=== PATIENT | female | born 1970 | race Caucasian/White ===

== ENCOUNTER 2018-11-23 12:48 | Emergency (ER) | payer MEDICAID, OTHER ==
[~2018-11-23] VITALS: Ht 154.9 cm; Wt 59.0 kg
[2018-11-23 12:54] VITALS: BP 133/81
[2018-11-23] MEDS ORDERED: GLUCAGON 1 MG VIAL IVP ONE (13:50)
[2018-11-23] MEDS ORDERED: ALBUTEROL SULFATE/IPRATROPIU 3 ML SOL IH ONE (13:50)
--- NOTE | 2018-11-23 14:14 | NUR ---
PATIENT PRESENTS TO ED WITH BROUGHT IN BY SISTER---PT HAD BEEN EATING CHICKEN AND FEELS A BONE IS LODGED IN HER THROAT---ABLE TO VERBALIZED 2-3 WORD SPEECH, ACTIVE DROOLING NO ACCESSORY MUSCLE USE NOTED---SITTING ON CHAIR . DENIES N/V/D; SKIN IS PINK/WARM/DRY; AAOX4 WITH EVEN AND STEADY GAIT; LUNGS CLEAR BL; HR EVEN AND REGULAR; PT DENIES ANY FEVER, CP, SOB, OR COUGH AT THIS TIME; PATIENT STATES PAIN OF 10/10 AT THIS TIME; VSS; PATIENT POSITIONED FOR COMFORT; HOB ELEVATED; BEDRAILS UP X2; BED DOWN. ER MD MADE AWARE OF PT STATUS.
[2018-11-23 15:51] VITALS: BP 127/78
--- NOTE | 2018-11-23 15:52 | NUR ---
Patient discharged with v/s stable. Written and verbal after care instructions given and explained. Patient alert, oriented and verbalized understanding of instructions. Ambulatory with steady gait. All questions addressed prior to discharge. ID band removed. Patient advised to follow up with PMD. Rx of REGLAN given. Patient educated on indication of medication including possible reaction and side effects. Opportunity to ask questions provided and answered.
== END 2018-11-23 15:52 | disposition home or self-care (01) ==
LOC: MED 12:48
DX: T17.928A Food in respiratory tract, part unspecified causing other injury, initial encounter (principal); R06.02 Shortness of breath; M54.2 Cervicalgia; X58.XXXA Exposure to other specified factors, initial encounter; Y93.89 Activity, other specified; Y92.89 Other specified places as the place of occurrence of the external cause; Y99.8 Other external cause status
CPT/HCPCS: 70360; 70490; 71046; 94640; 96372; 99284; J1610; J7620